=== PATIENT | male | born 1985 | race Caucasian/White ===

== ENCOUNTER 2020-05-02 09:35 | Outpatient (CLI) | payer OTHER, SELFPAY ==
--- NOTE | ~2020-05-02 | XR_ITS ---
EXAMINATION: XR ankle LT min 3V DATE: 05/02/2020 10:07 INDICATION: Left ankle pain and lateral left foot pain TECHNIQUE: Anteroposterior, oblique, mortise, and lateral views of the left ankle were obtained. COMPARISON: None. FINDINGS: Alignment is normal. No fracture. Joint spaces are well maintained. No ankle joint effusion. Modera te-sized plantar calcaneal spur. Diffuse soft tissue swelling about the ankle and visualized foot and lower leg. IMPRESSION: 1. Plantar calcaneal spur. No other osseous abnormality. Reviewed, dictated and finalized at location B.
== END 2020-05-02 09:36 | disposition home or self-care (01) ==
PROVIDERS: PCP Family Medicine; Visit Provider Family Medicine
DX: M25.572 Pain in left ankle and joints of left foot (principal)
CPT/HCPCS: 73610

== ENCOUNTER 2020-06-15 13:29 | Outpatient (CLI) | payer OTHER, SELFPAY ==
--- NOTE | ~2020-06-15 | US_ITS ---
EXAMINATION: US venous doppler [facility] DATE: 06/15/2020 15:40 INDICATION: Left lower limb swelling TECHNIQUE: Cortez scale images without and with compression and Doppler images of the left lower extrem ity veins were obtained. COMPARISON: None FINDINGS: The left common femoral vein, profunda femoral vein, femoral vein, popliteal vein, peroneal trunk, posterior tibial veins, and greater saphenous vein are patent. IMPRESSION: 1. Patent left lower extremity veins. No evidence of deep venous thrombosis. Reviewed, dictated and finalized at location A. IC INFORMATION DIRECTOR
[2020-06-15 13:43] LABS: Basophils Absolute Auto 0.03 K/mm3 (0.00-0.10); Basophils Percent Auto 0.5 % (0.0-1.0); Eosinophils Absolute Auto 0.15 K/mm3 (0.02-0.50); Eosinophils Percent Auto 2.3 % (1.0-6.0); Hematocrit 43.9 % (40.0-54.0); Hemoglobin 13.9 g/dL (14.0-18.0); Immature Granulocyte Absolute 0.03 K/mm3 (0.00-0.00); Immature Granulocyte Percent A 0.5 % (0.0-0.0); Lymphocytes Absolute Auto 1.87 K/mm3 (1.10-4.50); Lymphocytes Percent Auto 28.5 % (18.0-42.0); Mean Corpuscular HGB Conc 31.7 g/dL (32.0-36.0); Mean Corpuscular Hemoglobin 29.6 pg (27.0-31.0); Mean Corpuscular Volume 93.6 fL (78.0-102.0); Mean Platelet Volume 10.2 fl (8.7-11.0); Monocytes Absolute Auto 0.46 K/mm3 (0.10-0.90); Neutrophils Percent Auto 61.2 % (50.0-70.0); Platelet Count Result 223 K/mm3 (150-420); Red Blood Count 4.69 M/mm3 (4.70-6.10); Red Cell Distribution Width 12.1 % (11.6-14.4); White Blood Count 6.6 K/mm3 (4.8-10.8)
[2020-06-15 13:55] LABS: Anion Gap 9 mmol/L (8-16); Blood Urea Nitrogen 15 mg/dL (7-18); Calcium 9.2 mg/dL (8.5-10.1); Carbon Dioxide 29 mmol/L (21-32); Chloride 101 mmol/L (98-108); Estimated Glomerular Filt Rate > 60; Glucose 103 mg/dL (70-99); Osmolality Calculated 288 mOsm/kg (285-295); Potassium 3.9 mmol/L (3.5-5.1); Sodium 139 mmol/L (136-145)
[2020-06-15 14:46] LABS: D Dimer 0.51 mg/L (0.19-0.50)
== END 2020-06-15 13:30 | disposition home or self-care (01) ==
PROVIDERS: PCP Family Medicine; Visit Provider Family Medicine
DX: M79.662 Pain in left lower leg (principal); M25.572 Pain in left ankle and joints of left foot
CPT/HCPCS: 36415; 80048; 85025; 85380; 93971

== ENCOUNTER 2020-07-13 09:13 | Outpatient (CLI) | payer OTHER, SELFPAY ==
--- NOTE | ~2020-07-13 | US_ITS ---
EXAMINATION: US venous doppler LE BI EXAM DATE: 07/13/2020 10:47 INDICATION: I87.2 - Venous insufficiency (chronic) (peripheral) venous insufficiency. TECHNIQUE: Multiple grayscale, color flow and Doppler images of the lower extremity venous systems bi laterally were obtained and reviewed. Saphenous venous mapping. The exam was reviewed on 07/13/2020. FINDINGS: Right side: The right common femoral, femoral and profunda veins demonstrate normal color flow, respi ratory variation, augmentation and compressibility. Compressibility, color flow confirmed within the right popliteal, posterior tibial, peroneal, and greater saphenous veins. Sluggish flow consistent with venous stasis in the greater saphenous vein. Right Standing Venous Mapping: reflux seconds duration; vein size. Greater saphenous origin: 0 seconds; 8.7 mm. Greater saphenous mid thigh:------ 0 seconds; 3.0 mm. Greater saphenous below knee:--- 0 seconds; 1.9 mm. Lesser saphenous proximally:------ 0 seconds; 7.0 mm. Lesser saphenous distally: 0 seconds; 3.3 mm. Left side: The left common femoral, femoral and profunda veins demonstrate normal color flow, respira tory variation, augmentation and compressibility. Compressibility, color flow confirmed within the l eft popliteal, posterior tibial, peroneal, and greater saphenous veins. Sluggish flow consistent wit hin left greater saphenous and lesser extent common femoral vein. Left Standing Venous Mapping: reflux seconds duration; vein size. Greater saphenous origin: 0 seconds; 8.5 mm. Greater saphenous mid thigh:------ 0 seconds; 2.7 mm. Greater saphenous below knee:--- 0 seconds; 3.6 mm. Lesser saphenous proximally:------ 0 seconds; 10.0 mm. Lesser saphenous distally: 0 seconds; 4.4 mm. IMPRESSION: 1. No lower extremity deep venous thrombosis bilaterally. 2. No venous reflux but there was sluggish flow within the greater saphenous veins. Reviewed, dictated and finalized at location A. R IN IMPRESSION: 1. No lower extremity deep venous thrombosis bilaterally. 2. No venous reflux but there was sluggish flow within the greater saphenous v eins.
== END 2020-07-13 09:14 | disposition home or self-care (01) ==
PROVIDERS: PCP Family Medicine; Visit Provider Orthopaedic Surgery
DX: I87.2 Venous insufficiency (chronic) (peripheral) (principal)
CPT/HCPCS: 93970

== ENCOUNTER 2020-09-28 08:00 | Outpatient (RCR) | payer OTHER, SELFPAY ==
--- NOTE | 2020-07-22 09:49 | PTOPEVAL ---
PHYSICAL THERAPY EVALUATION AND PLAN OF CARE 07-22-2020 Thank you for referring Leonid Dale to [facility].? He is scheduled to be seen for therapy? 2-3 x/week for 4 weeks. Please review, sign, date and return this plan of care RYAN. I agree with and certify that the following plan of care is medically necessary. Referring Physician Date Attending Provider: Manjinder Stephenson MD PT Outpatient Evaluation Start: 07/22/20 08:20 Document 07/22/20 08:15 ARABELLA (Rec: 07/22/20 09:49 ARABELLA [id number]) Outpatient Past Medical History Past Medical History Source of Past Medical History Patient Neurological History Hx Neurological Disorders No Significant History Cardiovascular History Hx Hypercholesterolemia Yes: monitoring- cholesterol is increased Respiratory History Hx Respiratory Disorders No Significant History Gastrointestinal History Hx Gastrointestinal Bleed Yes: diet related Genitourinary History Hx Genitourinary Disorders No Significant History Musculoskeletal History Hx Orthopedic Surgery Yes: L thumb fusion surgery Hx Other Musculoskeletal Disorders Yes: this admit-for L ankle sprain & swelling Hematological History Hx Hematological Disorders No Significant History Endocrine History Hx Endocrine Disorders No Significant History HEENT History Hx HEENT Disorders No Significant History Psychosocial History Hx Anxiety Yes Other History Hx Other Medical Conditions Yes: obesity Evaluation Information Problem Diagnosis L ankle pain and swelling/ lymphedema clinic Onset December 2019 Subjective Information is not doing any ankle Query Text:As Reported By Patient/ exercises at home; had PT, Family completed ~ May; they gave link on phone for his HEP and link did not work, so not doing any ankle exercises; has been working and that is enough to hurt his ankle and not want to do anymore Diagnostic Tests X-Rays For This Problem Yes: moderate plantar calcaneal spur,no fracture Other Tests For This Problem Yes: doppler negative for DVT Prior Level of Function Activity Level (Last 3 Months) Occupation working- inventory/counter- walking, ladders,operate machinery; 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
--- NOTE | 2020-08-08 11:38 | PCPTNOTE ---
Patient called & cancelled scheduled appointment at 10:29 for 10:30 appointment due to car trouble. [ ]
--- NOTE | 2020-08-09 12:30 | PCPTNOTE ---
pt called and left message for me to call him. I called pt, he stated his finger put a hole in his compression knee high. Discussed use of gloves to protect the fabric. And to call company to see if they will replace the garment, because it is not that old.
--- NOTE | 2020-08-15 11:14 | PCPTNOTE ---
Patient did not show up for scheduled appointment this date. Called and talked to Leonid , who stated he was sorry that he forgo to call but is waiting to go an get tested for covid at he [facility] in [facility] today. Pt stated he was with a friend this weekend that tested positive. Pt will call back after he finds out if he will get the results before his appt on Saturday.
--- NOTE | 2020-08-19 16:28 | PTOPEVAL ---
PHYSICAL THERAPY RE-EVALUATION AND UPDATED PLAN OF CARE 08-19-20 Refer to the clinical summary below for the comparison of today and the initial evaluation. The treatment for his lymphedema is completed and PT treatment will continue for rehabilitation of his L ankle for ROM and strengthening, 1-2x/week for 5 weeks. Thank you for referring Leonid Dale to [facility].? Please review, sign, date and return this plan of care RYAN. I agree with and certify that the following plan of care is medically necessary. 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 and more pain, in both ankles; is using the cane PRN , with short distances, is not using it, but feel like R ankle is going to collapse and fall; wearing compression knee high and swelling is doing OK; been doing self massage on leg; Pain Assessment Timing of Pain Assessment Timing of Pain Assessment Assessment Pain Scale Pain Scale Used Numeric (1 - 10) Self Report Pain Assessment Left Ankle(s) Reported Pain Level 2 Radicular Pain Location anterior ankle and inferior to lateral malleolus Pain Frequency Chronic,Continuous Other Pain Description raw, pain, hurts,spikes, sore- like walked for 3 days constantly on it Lowest Pain Intensity 3 Greatest Pain Intensity 9 Pain Aggravating Factors Walking,Weight Bearing/ Standing Other Pain Aggravating Factors working; Pain Score Pain Score 2: Self Report Additional Pain Score Comments R ankle also hurting since back to work Interventions Used Interventions Used By Clinicians Education,Exercise Pain Relief Interventions Used By Ice,Inactivity/Rest,Sitting Patient Other Alleviating Interventions over the counter meds not help - not taking any meds; Lower Extremity Range of Motion General Lower Extremity Range of Motion Gross Lower Extremity Range of Motion long sitting active L ankle: Comments DF 12; PF 35', inversion 25, eversion 15'; pain increase with eversion Lower Extremity Muscle Strength Testing General Lower Extremity Strength Gross Lower Extremity Strength
--- NOTE | 2020-08-26 09:19 | PCPTNOTE ---
Patient called around 915 and left a message to report he mixed his times up for his apt. We will have to cancel this apt as there are no other time slots on the schedule. Clerical called and spoke with patient.
--- NOTE | 2020-09-05 10:28 | PCPTNOTE ---
pt called and canceled today's appt due to car problems;
--- NOTE | 2020-09-19 10:13 | PCPTNOTE ---
Patient called & cancelled scheduled appointment this date no reason given.
--- NOTE | 2020-09-20 11:49 | PCPTNOTE ---
pt was 10 min late for today's treatment appt;
--- NOTE | 2020-09-22 11:15 | PCPTNOTE ---
pt did not show for today's reevaluation; called him and he had the appt as tomorrow/had wrong day; tomorrow is not available, rescheduled for next week;
--- NOTE | 2020-09-28 08:57 | PTOPEVAL ---
PHYSICAL THERAPY DISCHARGE 09-28-20 Refer to the clinical summary below for his status at discharge. Discharge PT at this time. The goals were achieved, except pain rating at the highest rating. Thank you for referring Leonid Dale to [facility].? Please review, sign, date and return this discharge report RYAN. I agree with and certify that the following plan of care is medically necessary. Referring Physician Date Attending Provider: Manjinder Stephenson MD Document 09/28/20 08:20 ARABELLA (Rec: 09/28/20 08:56 ARABELLA [id number]) Assessment Status Discharge Subjective Information Leonid reports: hurt his back Query Text:As Reported By Patient/ and ankle at work 2 days ago, Family lifting too much, saw general dr and got some pain meds; doing his exercises; feels like ankle is not yet at 100%, due to his weight; is trying to lose wt- no soda or fast food and starting more fitness exercises; ready to be discharged from therapy. Pain Assessment Timing of Pain Assessment Timing of Pain Assessment Assessment Pain Scale Pain Scale Used Numeric (1 - 10) Self Report Pain Assessment Left Ankle(s) Reported Pain Level 0 Pain Frequency Chronic,Intermittent Lowest Pain Intensity 0 Greatest Pain Intensity 7 Other Pain Aggravating Factors hurt back and ankle lifting at work 2 days ago Pain Score Pain Score 0: Self Report Interventions Used Interventions Used By Clinicians Exercise Pain Relief Interventions Used By Inactivity/Rest,Medication Patient Lower Extremity Range of Motion General Lower Extremity Range of Motion Gross Lower Extremity Range of Motion L ankle in long sitting: Comments active: DF 10' , PF 45', inversion 45', eversion 25'; continues to wear compression knee high; Lower Extremity Muscle Strength Testing General Lower Extremity Strength Gross Lower Extremity Strength B UE Max Lift, 40# stop due to back hurting; single leg standing L 22 seconds; standing B PF x 20 reps with good heel raise off ground; B DF x 20 reps; sitting with heel on ground and 3# wt on forefoot: ankle inversion x25 and eversion x 25 reps; Gait Assessment 2 Minute Walk Total Distance Walked (feet)
== END 2020-09-29 08:41 | disposition home or self-care (01) ==
LOC: ANHPT 08:00
PROVIDERS: PCP Family Medicine; Visit Provider Orthopaedic Surgery
DX: M25.572 Pain in left ankle and joints of left foot (principal); M79.89 Other specified soft tissue disorders
CPT/HCPCS: 29581; 97022; 97110; 97140; 97162